=== PATIENT | male | born 1950 | race Two or more races ===

== ENCOUNTER 2017-06-23 14:09 | Emergency (ER) | payer MEDICARE, OTHER ==
[~2017-06-23] VITALS: Ht 165.1 cm; Wt 77.1 kg
[2017-06-23 14:20] VITALS: BP 130/85
--- NOTE | 2017-06-23 14:23 | Emergency Room Report ---
History of Present Illness General Chief Complaint: Chest Pain Source: Patient Present Illness HPI 67-year-old male with pmhx of HTN, DM p/w chest pain for one day. Chest pain started while he was getting into an argument with his last night. Localized to substernal area, no radiation to back or other areas, sharp in nature, gradual in onset, lasted - 15 min, multiple episodes. Occurred on rest and on exertion. Denies SOB. Denies palpitations, diaphoresis, n/v. Denies fever, chills, cough, abd pain. Denies trauma. Patient has never had a stress test. Patient has never had a cardiac catheterization. Denies smoking, no family history of cardiac disease at a young age. Allergies: Coded Allergies: PENICILLINS (Verified Allergy, Unknown, 06/23/17) Patient History Past Medical History: see triage record Past Surgical History: none Pertinent Family History: none Reviewed Nursing Documentation: PMH: Agreed, PSxH: Agreed Nursing Documentation-PMH Past Medical History: No History, Except For Hx Hypertension: Yes Review of Systems All Other Systems: negative except mentioned in HPI Physical Exam Vital Signs Date Time Temp Pulse Resp B/P (MAP) Pulse Ox O2 Delivery O2 Flow Rate FiO2 06/23/17 14:13 97.5 72 23 142/102 98 Room Air Sp02 EP Interpretation: reviewed, normal General Appearance: normal inspection, well appearing, no apparent distress, alert, GCS 15, non-toxic Head: normocephalic, atraumatic Eyes: bilateral eye normal inspection, bilateral eye PERRL, bilateral eye EOMI ENT: normal ENT inspection, normal pharynx, normal voice, moist mucus membranes Neck: normal inspection, full range of motion, supple Respiratory: normal inspection, lungs clear, normal breath sounds, no respiratory distress, no retraction, no wheezing, speaking full sentences, chest symmetrical Cardiovascular #1: normal inspection, regular rate, rhythm, no edema, normal capillary refill Cardiovascular #2: 2+ radial (R), 2+ radial (L) Gastrointestinal: normal inspection, non tender, soft, non-distended, no guarding Genitourinary: no CVA tenderness Musculoskeletal: normal inspection, back normal, normal range of motion, non- tender Neurologic: normal inspection, alert, oriented x3, responsive, motor strength/ tone normal, sensory intact, normal gait, speech normal Psychiatric: normal inspection, judgement/insight normal, memory normal Skin: normal inspection, normal color, no rash, warm/dry, well hydrated, normal turgor Medical Decision Making Diagnostic Impression: Primary Impression: Chest pain ER Course 67-year-old male presents with chest pain DDX: ACS vs. CHF vs. pneumonia vs. gastritis/GERD vs. pneumothorax PE on differential however at this time there are other more likely diagnoses. Plan: IV access, obtain labs including troponin, EKG, CXR ASA, pain control with nitro / morphine Anticipate admission ER course: Patient was treated with ASA. Patient has remained on a monitor, HD stable, chest pain improved. labs unremarkable but I spoke extensively to patient and urging them to stay in hospital for furhter workup as ACS is lifethreatening, spoke also with translation with Dr Luo, however they still say they would like to go. Disposition: Patient is clinically sober, is free from from distracting injury, and has intact judgement and capacity to decide to leave against medical advice. Patient came in for chest pain I am concerned for ACS Patient verbalized understanding of my concern and my need to do further lab work and admit the patient, but patient states "I feel better and I would like to go ". I explained to patient the risks of leaving AMA and patient informed that if they leave, they could get worse, ould become become critically ill, possibly become disabled or . Patient verbalized back to me understanding of these risks but still wants to leave. Patient instructed to follow up with primary care doctor in 1-2 days without fail, as well as cardiology within this week for further testing. Please note that this Emergency Department Report was dictated using [employer] journeyman technology software, occasionally this can lead to erroneous entry secondary to interpretation by the dictation equipment. EKG Diagnostic Results EP Interpretation: Yes Rate: normal Rhythm: NSR ST Segments: No acute changes ASA given to patient: Yes Rhythm Strip EP Interpretation: Yes Rate: 70 Rhythm: NSR, no PVCs, no ectopy Chest X-ray CXR: Ordered: Yes 1 view Indication: Chest pain EP interpretation: Yes Interpretation: No consolidation, no effusion, no PTX, no acute cardiopulmonary disease Impression: No acute disease Electronically signed by Jacinda Muhammad MD Laboratory Tests Test 06/23/17 14:36 White Blood Count 6.9 K/UL (4.8-10.8) Red Blood Count 4.63 M/UL (4.70-6.10) L Hemoglobin 15.3 G/DL (14.2-18.0) Hematocrit 47.0 % (42.0-52.0) Mean Corpuscular Volume 102 FL (80-99) H Mean Corpuscular Hemoglobin 33.0 PG (27.0-31.0) H Mean Corpuscular Hemoglobin Concent 32.5 G/DL (32.0-36.0) Red Cell Distribution Width 13.5 % (11.6-14.8) Platelet Count 334 K/UL (150-450) Mean Platelet Volume 8.4 FL (6.5-10.1) Neutrophils (%) (Auto) 43.2 % (45.0-75.0) L Lymphocytes (%) (Auto) 39.6 % (20.0-45.0) Monocytes (%) (Auto) 12.3 % (1.0-10.0) H Eosinophils (%) (Auto) 2.2 % (0.0-3.0) Basophils (%) (Auto) 2.8 % (0.0-2.0) H Sodium Level 136 MMOL/L (136-145) Potassium Level 4.4 MMOL/L (3.5-5.1) Chloride Level 103 MMOL/L (98-107) Carbon Dioxide Level 25 MMOL/L (21-32) Anion Gap 8 mmol/L (5-15) Blood Urea Nitrogen 16 mg/dL (7-18) Creatinine 1.0 MG/DL (0.55-1.30) Estimate Glomerular Filtration Rate > 60 mL/min (>60) Glucose Level 109 MG/DL (74-106) H Calcium Level 8.1 MG/DL (8.5-10.1) L Total Bilirubin 0.5 MG/DL (0.2-1.0) Aspartate Amino Transferase (AST) 48 U/L (15-37) H Alanine Aminotransferase (ALT) 37 U/L (12-78) Alkaline Phosphatase 40 U/L (46-116) L Troponin I 0.000 ng/mL (0.000-0.056) Pro-B-Type Natriuretic Peptide 54 pg/mL (0-125) Total Protein 7.6 G/DL (6.4-8.2) Albumin 3.9 G/DL (3.4-5.0) Globulin 3.7 g/dL Last Vital Signs Date Time Temp Pulse Resp B/P (MAP) Pulse Ox O2 Delivery O2 Flow Rate FiO2 06/23/17 14:13 97.5 72 23 142/102 98 Room Air Disposition: AGAINST MEDICAL ADVICE Condition: Stable Scripts Nitroglycerin (Nitrostat) 0.4 Mg Tab.subl 0.4 MG SL EVERY 6 HOURS Y for For Pain for 2 Days, #10 TAB 0 Refills Prov: Jacinda Muhammad M.D. 06/23/17 Jacinda Muhammad M.D. Jun 23, 2017 14:23
[2017-06-23 14:49] LABS: BASOPHILS % (AUTO) 2.8 % (0.0-2.0); EOSINOPHILS % (AUTO) 2.2 % (0.0-3.0); LYMPHOCYTES % (AUTO) 39.6 % (20.0-45.0); MEAN CORPUSCULAR HGB CONC 32.5 G/DL (32.0-36.0); MEAN CORPUSCULAR VOLUME 102 FL (80-99); MEAN PLATELET VOLUME 8.4 FL (6.5-10.1); MONOCYTES % (AUTO) 12.3 % (1.0-10.0); NEUTROPHILS % (AUTO) 43.2 % (45.0-75.0); PLATELET COUNT 334 K/UL (150-450); RED BLOOD COUNT 4.63 M/UL (4.70-6.10); RED CELL DISTRIBUTION WIDTH 13.5 % (11.6-14.8); WHITE BLOOD COUNT 6.9 K/UL (4.8-10.8)
[2017-06-23 15:00] LABS: CHLORIDE 103 MMOL/L (98-107); POTASSIUM 4.4 MMOL/L (3.5-5.1)
[2017-06-23 15:04] LABS: ANION GAP 8 mmol/L (5-15); CALCIUM 8.1 MG/DL (8.5-10.1); CARBON DIOXIDE 25 MMOL/L (21-32); GLOMERULAR FILTRATION RATE > 60 mL/min (>60); SODIUM 136 MMOL/L (136-145)
[2017-06-23 15:13] LABS: ALANINE AMINOTRANSFERASE 37 U/L (12-78); ASPARTATE AMINO TRANSFERASE 48 U/L (15-37); TOTAL PROTEIN 7.6 G/DL (6.4-8.2)
[2017-06-23] MEDS ORDERED: NITROSTAT0.4 M2 SL (15:29)
[2017-06-23 15:40] VITALS: BP 130/85
--- NOTE | 2017-06-24 10:15 | Diagnostic Imaging Report ---
Indication: Chest pain Technique: XRAY Chest 1v Comparison: None. Findings: The cardiomediastinal silhouette is normal. The lungs are clear. There is no evidence of pleural fluid. The bones are unremarkable. Impression: Normal chest.
--- NOTE | 2017-06-24 19:15 | Cardiology Report ---
APPROVED REPORT EKG Measurement Heart [id number] Normal sinus rhythm Possible Left atrial enlargement Left axis deviation Abnormal ECG
== END 2017-06-23 15:40 | disposition left against medical advice (07) ==
LOC: EMR 14:30
DX: R07.89 Other chest pain (principal); I10 Essential (primary) hypertension; Z88.0 Allergy status to penicillin
CPT/HCPCS: 36415; 71010; 80053; 83880; 84484; 85025; 93005; 99284

== ENCOUNTER 2019-11-11 12:58 | Emergency (ER) | payer MEDICARE, OTHER ==
[~2019-11-11] VITALS: Ht 170.2 cm; Wt 86.2 kg
[~2019-11-11 12:58] MED LIST: NITROSTAT0.4 M2 SL
[2019-11-11] MEDS ORDERED: LEXAPRO10 MG ORAL (13:24)
[2019-11-11] MEDS ORDERED: JAKAFI5 MG ORAL (13:24)
[2019-11-11] MEDS ORDERED: VASCEPA1 GM ORAL (13:24)
[2019-11-11 13:30] VITALS: BP 153/91
[2019-11-11] MEDS ORDERED: ASPIRIN81 MG ORAL (13:31)
[2019-11-11] MEDS ORDERED: PRAVASTATIN SOD20 M1 ORAL (13:31)
[2019-11-11] MEDS ORDERED: REPATHA SY140 MG/1 M SQ (13:31)
[2019-11-11] MEDS ORDERED: VITAMIN C500 M1 ORAL (13:31)
[2019-11-11] MEDS ORDERED: VITAMIN D3 COM1 EACH PO (13:31)
[2019-11-11] MEDS ORDERED: Ketorolac 30mg Inj IV ONE (13:45)
[2019-11-11] MEDS ORDERED: Omnipaque-300 100ml vial INJ PRN (13:45)
[2019-11-11] MEDS ORDERED: Methocarbamol 750mg tab ORAL ONE (13:45)
[2019-11-11 14:04] LABS: BILIRUBIN, URINE NEGATIVE (NEGATIVE); COLOR,URINE PALE YELLOW; EOSINOPHILS % (AUTO) 2.4 % (0.0-3.0); GLUCOSE, URINE (UA) NEGATIVE (NEGATIVE); HEMATOCRIT 40.6 % (42.0-52.0); HEMOGLOBIN 13.2 G/DL (14.2-18.0); KETONES,URINE NEGATIVE (NEGATIVE); LEUKOCYTE ESTERASE ,URINE NEGATIVE (NEGATIVE); LYMPHOCYTES % (AUTO) 35.5 % (20.0-45.0); MEAN CORPUSCULAR VOLUME 84 FL (80-99); MONOCYTES % (AUTO) 11.2 % (1.0-10.0); NEUTROPHILS % (AUTO) 47.9 % (45.0-75.0); NITRITE,URINE NEGATIVE (NEGATIVE); PH,URINE 7 (4.5-8.0); PLATELET COUNT 362 K/UL (150-450); PROTEIN,URINE NEGATIVE (NEGATIVE); RED BLOOD COUNT 4.84 M/UL (4.70-6.10); UROBILINOGEN,URINE NORMAL MG/DL (0.0-1.0); WHITE BLOOD COUNT 8.9 K/UL (4.8-10.8)
[2019-11-11 14:06] LABS: APPEARANCE,URINE CLEAR
[2019-11-11 14:15] LABS: ANION GAP 9 mmol/L (5-15); BLOOD UREA NITROGEN 16 mg/dL (7-18); CALCIUM 8.9 MG/DL (8.5-10.1); CARBON DIOXIDE 24 MMOL/L (21-32); CHLORIDE 103 MMOL/L (98-107); CREATININE 1.3 MG/DL (0.55-1.30); POTASSIUM 4.4 MMOL/L (3.5-5.1); SODIUM 136 MMOL/L (136-145)
[2019-11-11 14:20] LABS: ALANINE AMINOTRANSFERASE 65 U/L (12-78); ALBUMIN/GLOBULIN RATIO 1.1 (1.0-2.7); ALKALINE PHOSPHATASE 42 U/L (46-116); ASPARTATE AMINO TRANSFERASE 59 U/L (15-37); BILIRUBIN,TOTAL 0.4 MG/DL (0.2-1.0)
--- NOTE | 2019-11-11 15:38 | Diagnostic Imaging Report ---
Indication: Abdominal pain Technique: CT of the abdomen and pelvis utilizing automated exposure control with intravenous contrast. Venous scanning performed. Axial, sagittal and coronal reformats presented. CT dose: Total DLP 501.7 mGycm; CTDI vol 9.9 mGy Comparison: None Findings: Mild dependent atelectasis noted in the lung bases. Partially imaged heart appears normal in size. No pericardial effusion. Coronary arterial versus aortic valvular calcifications are partially visualized. Liver contour is smooth. There is a well-circumscribed low-attenuation lesion in segment II of liver most likely representing a cyst or hemangioma although it is too small for definitive characterization. Similar-appearing even smaller lesion is noted in segment MARLENA with similar differential. Hepatic veins and portal veins are patent. There are no CT evident gallstones or pericholecystic inflammatory changes. No biliary ductal dilatation. Spleen, adrenal glands and pancreas unremarkable. No peripancreatic inflammatory changes or fluid collections. Small probable cysts noted in the bilateral kidneys. There are small foci of renal cortical scarring bilaterally, left greater than right -likely sequela of prior infection or inflammation. Trace nonspecific perinephric stranding is noted. There is no urinary tract stone or hydronephrosis. Bladder is unremarkable in appearance. Prostate appears mildly enlarged with minimal mass effect on the posterior aspect of the bladder. Prostate enlargement most likely related to BPH however correlation with prostate exam and PSA is recommended. There is no free intraperitoneal air or fluid. There is no evidence of small bowel obstruction or focal inflammatory stranding within the mesentery. The appendix is normal in caliber. There is no periappendiceal inflammatory stranding. The abdominal aorta is normal in caliber with overall mild atherosclerotic calcification. The iliac arteries are tortuous. There is no pathologically enlarged lymphadenopathy. There are degenerative changes in the spine with disc space narrowing and vacuum disc phenomenon noted at L2-L3. There are also prominent osteophytes at this level. Small multilevel disc bulges are suggested. No acute fractures identified. IMPRESSION: No CT evidence of acute intra-abdominal pathology. Incidental findings as above. The CT scanner at [facility] is accredited by the [employer] and the scans are performed using protocols designed to limit radiation exposure to as low as reasonably achievable to attain images of sufficient resolution adequate for diagnostic evaluation.
--- NOTE | 2019-11-11 16:01 | Emergency Room Report ---
History of Present Illness General Chief Complaint: Lower Back Pain or Injury Source: EMS Present Illness HPI 69-year-old male with no significant past medical history here complaining of 2 weeks of lower back pain rating a 10 out of 10 without radiation. Denies any tingling numbness, saddle paresthesia, urinary bowel incontinence. Denies any fall or injury. Denies chest pain, abdominal pain, shortness of breath, diarrhea. Denies any urinary symptoms. Has not taken medication for symptom relief. Reports that this morning he was in a lot of pain however took Advil and felt a little better. Neurovascularly intact. No generalized or unilateral weakness noted. Allergies: Coded Allergies: PENICILLINS (Verified Allergy, Unknown, 06/23/17) COVID-19 Screening Contact w/high risk pt: No Recent Travel to affected area: No Experienced COVID-19 symptoms?: No COVID-19 Testing performed ELECTRIC HOIST OPERATOR: No Patient History Past Medical History: see triage record Past Surgical History: none Pertinent Family History: none Immunizations: UTD Reviewed Nursing Documentation: PMH: Agreed; PSxH: Agreed Nursing Documentation-PMH Hx Hypertension: Yes Review of Systems All Other Systems: negative except mentioned in HPI Physical Exam Vital Signs Date Time Temp Pulse Resp B/P (MAP) Pulse Ox O2 Delivery O2 Flow Rate FiO2 11/11/19 13:14 97.7 89 16 153/91 (111) 95 Room Air Sp02 EP Interpretation: reviewed, normal General Appearance: no apparent distress, alert, GCS 15, non-toxic Head: normocephalic, atraumatic Eyes: bilateral eye normal inspection, bilateral eye PERRL ENT: hearing grossly normal, normal pharynx, no angioedema, normal voice Neck: full range of motion, supple/symm/no masses Respiratory: chest non-tender, lungs clear, normal breath sounds, speaking full sentences Cardiovascular #1: regular rate, rhythm, no edema Gastrointestinal: normal bowel sounds, non tender, soft, non-distended, no guarding, no rebound Rectal: deferred Genitourinary: no CVA tenderness Musculoskeletal: back normal, digits/nails normal, no calf tenderness, pelvis stable, gait/station normal, non-tender Neurologic: alert, motor strength/tone normal, oriented x3, sensory intact, responsive, speech normal Psychiatric: judgement/insight normal, memory normal, mood/affect normal, no suicidal/homicidal ideation Skin: no rash Lymphatic: no adenopathy Medical Decision Making PA Attestation All my diagnosis and treatment plans were reviewed ad discussed with my supervising physician Dr. [place] Diagnostic Impression: Primary Impression: Bulging disc Additional Impression: Lumbar disc disease ER Course 69-year-old male with no significant past medical history here complaining of 2 weeks of lower back pain rating a 10 out of 10 without radiation. Denies any tingling numbness, saddle paresthesia, urinary bowel incontinence. Denies any fall or injury. Denies chest pain, abdominal pain, shortness of breath, diarrhea. Denies any urinary symptoms. Has not taken medication for symptom relief. Reports that this morning he was in a lot of pain however took Advil and felt a little better. Neurovascularly intact. No generalized or unilateral weakness noted. Ddx considered but are not limited to: Lumbar spine sprain, strain, fracture, contusion, neuropathy, pyelonephritis Vital signs: are WNL, pt. is afebrile H&PE are most consistent with: Bulging disc, lumbar disc disease ORDERS: CBC, CMP, UA, CT abdomen pelvis with contrast, ibuprofen, Robaxin, lidocaine patch ER intervention: Toradol, Robaxin, lidocaine patch DISCHARGE: At this time pt. is stable for d/c to home. Will provide printed patient care instructions, and any necessary prescriptions. Care plan and follow up instructions have been discussed with the patient prior to discharge. Patient follow-up with primary doctor, take medication as directed, if worsening symptoms return to the emergency room CT/MRI/US Diagnostic Results CT/MRI/US Diagnostic Results : Imaging Test Ordered: CT abdomen pelvis with contrast Impression Bulging disc in lumbar area, degenerative disc disease Last Vital Signs Date Time Temp Pulse Resp B/P (MAP) Pulse Ox O2 Delivery O2 Flow Rate FiO2 11/11/19 13:30 97.7 16 153/91 95 Room Air 11/11/19 13:14 89 Disposition: HOME, SELF-CARE Condition: Stable Scripts Lidocaine Patch* (Lidoderm Patch*) 1 Each Adh..patch 1 PATCH TOPIC DAILY, #30 PATCH Patch(es) may remain in place for up to 12 hours in any 24-hour period. Prov: Clotilde Wisdom 11/11/19 Ibuprofen* (MOTRIN*) 600 Mg Tablet 600 MG ORAL THREE TIMES A DAY, #30 TAB Prov: Clotilde Wisdom 11/11/19 Methocarbamol* (ROBAXIN-500*) 500 Mg Tablet 500 MG ORAL TID PRN for For Pain, #15 TAB 0 Refills Prov: Clotilde Wisdom 11/11/19 Referrals: NOT CHOSEN IPA/,REFERRING (PCP) Patient Instructions: Low Back Sprain With [facility] Additional Instructions: Take medication as directed, follow with primary doctor, need referral to data integrity specialist further imaging may be needed, if worsening symptoms return to the emergency room Clotilde Wisdom November 11, 2019 16:01
[2019-11-11] MEDS ORDERED: IBUPROFEN600 M1 ORAL (16:03)
[2019-11-11] MEDS ORDERED: LIDODERM700 M1 TOPIC (16:03)
[2019-11-11] MEDS ORDERED: ROBAXIN-500MG ORAL (16:03)
[2019-11-11 16:12] VITALS: BP 148/88
== END 2019-11-11 16:12 | disposition home or self-care (01) ==
LOC: EMR 13:20
DX: M51.26 Other intervertebral disc displacement, lumbar region (principal); I10 Essential (primary) hypertension; Z88.0 Allergy status to penicillin
CPT/HCPCS: 36415; 74177; 80053; 81003; 85025; 96374; 99284; J1885; Q9967